=== PATIENT | female | born 1970 | race Caucasian/White ===

== ENCOUNTER 2017-04-15 05:45 | Day surgery (SDC) | payer OTHER ==
[2017-04-13 11:27] LABS: BASOPHILS 0.3 % (0-2); EOSINOPHILS 2.4 % (0-7); HEMATOCRIT 39.2 % (36.0-48.0); HEMOGLOBIN 12.5 g/dL (12-16); IMMATURE GRANULOCYTES 0.4 % (0-5); LYMPHOCYTES 27.9 % (15-50); MCH 28.8 pg (26.0-34.0); MCHC 31.9 g/dL (31.0-37.0); MCV 90.3 fL (80.0-100.0); MEAN PLATELET VOLUME 10.7 fL (7.4-10.4); MONOCYTES 7.7 % (2-11); NEUTROPHILS 61.3 % (40-80); PLATELET COUNT 298 10x3/uL (130-400); RBC 4.34 10x6/uL (4.00-5.40); RDW 13.6 % (11.5-14.5); WBC 7.9 10x3/uL (4.8-10.8)
[2017-04-13 11:49] LABS: ANION GAP 8.6 mmol/L (8-16); CALCIUM 8.9 mg/dL (8.5-10.1); CARBON DIOXIDE 29.9 mmol/L (21.0-32.0); CREATININE - SERUM 0.9 mg/dL (0.6-1.3); POTASSIUM - SERUM 4.5 mmol/L (3.5-5.1)
[~2017-04-15] VITALS: Ht 172.7 cm; Wt 124.7 kg
--- NOTE | ~2017-04-15 | OP ---
PATIENT NAME: CANDY AYALA MEDICAL RECORD: [id number] :66 LOCATION:D[facility] ADMISSION DATE: SURGEON: LOLA SAUCEDO MD DATE OF OPERATION: 04/15/2017 PREOPERATIVE DIAGNOSES: Metrorrhagia. POSTOPERATIVE DIAGNOSES: Metrorrhagia. PROCEDURE: Hysteroscopy, dilation and curettage. SURGEON: Lola Saucedo MD ANESTHESIA: General endotracheal. INTRAVENOUS FLUIDS: Per anesthesia records. HYSTEROSCOPIC FLUID LOSS: Approximately 50 cc of 0.9 normal saline. SPECIMENS: Endometrial curettings. FINDINGS: 1. Grossly normal appearing proliferative endometrium. 2. Grossly normal external genitalia. DESCRIPTION OF PROCEDURE: The patient was taken to the operating room where general anesthesia was achieved without difficulty. The patient was then prepped and draped in normal sterile fashion in the dorsal lithotomy position in the [facility]. At this point, the vagina was prepped with Betadine and after draping, the bladder was drained of approximately 100 cc of clear yellow urine. At this point, a Graves speculum was placed in the vagina. The cervix was identified and grasped on its anterior lip with a single tooth tenaculum. The patient at that point was then sounded to approximately 9 cm. The patient was then gently dilated to approximately 6 mm, at which point, the hysteroscope was introduced into the cervix. The endometrial canal was grossly normal in appearance with proliferative endometrium noted. At this point, the hysteroscope was removed. In general, 4 quadrant curettings was performed. Following the curetting, the tenaculum was removed as well as the speculum. The patient tolerated the procedure well, transferred to postanesthesia recovery stable without incident. TRANSINT:[id number] Voice Confirmation ID: [id number] DOCUMENT ID: [id number] LOLA SAUCEDO MD CC: [id number] DICTATION DATE: 04/15/17 1139 MANAGER MATERIALS MANAGEMENT: 04/15/17 1210 [facility] 04/15/17 [place] [id number] [place] [id number]
[~2017-04-15 05:45] MED LIST: BIOTIN5 MG PO; BUTALBITAL-ASP-1 CAP PO; FISH OIL 1,2001 CAP PO; LUNESTA2 M1 PO; MULTI-DAY VITAM1 TAB PO; PROMETRIUM100 MG PO; PROZAC20 MG PO; STRESSTABS WITH1 TAB PO; VITAMIN C1000 MG PO; VITAMIN D31000 UNI2 PO; ZIAC 5-6.25 MG1 TAB PO
[2017-04-15] MEDS ORDERED: CLONAZEPAM0.125 MG/T PO (06:56)
[2017-04-15 07:07] VITALS: BP 128/78; Ht 172.7 cm; Wt 124.7 kg
[2017-04-15 07:12] LABS: HCG URINE NEGATIVE (NEGATIVE)
--- NOTE | 2017-04-15 11:14 | NUR ---
1045--PT VOIDS WITHOUT DIFFICULTY, IV DC'D. RAMY RN 1103--DISCHARGE INSTRUCTIONS GIVEN, PT VERBALIZES UNDERSTANDING. PT OFF UNIT VIA WC. RAMY KAY
== END 2017-04-15 11:05 | disposition home or self-care (01) ==
LOC: D.OPS 05:45 → D.PAN 07:30 → D.OPS 07:30 → D.PAN 08:15 → D.OPS 08:35 → D.PAN 08:35 → D.OPS 11:05
PROVIDERS: Obstetrics & Gynecology
DX: N92.1 Excessive and frequent menstruation with irregular cycle (principal); A63.0 Anogenital (venereal) warts; N88.2 Stricture and stenosis of cervix uteri; I10 Essential (primary) hypertension; G47.30 Sleep apnea, unspecified; K21.9 Gastro-esophageal reflux disease without esophagitis; K82.8 Other specified diseases of gallbladder; F41.0 Panic disorder [episodic paroxysmal anxiety]; G47.00 Insomnia, unspecified; Z88.0 Allergy status to penicillin; Z79.899 Other long term (current) drug therapy